=== PATIENT | female | born 2000 | race American Indian/Alaskan Native ===

== ENCOUNTER 2020-12-26 14:58 | Emergency (ER) | payer MEDICAID ==
[2020-12-26 15:28] VITALS: BP 98/54
[2020-12-26] MEDS ORDERED: diphenhydrAMINE 50 MG/ML VIAL IV ONE (15:36)
[2020-12-26] MEDS ORDERED: SODIUM CHLORIDE 0.9% 1000 ML 1,000 ML IV ONE (15:36)
[2020-12-26] MEDS ORDERED: ACETAMINOPHEN 325 MG TAB PO ONE (15:36)
[2020-12-26] MEDS ORDERED: METOCLOPRAMIDE 10 MG/2 ML INJ IV ONE (15:36)
--- NOTE | 2020-12-26 15:58 | Emergency Department Report ---
ED General Adult HPI - General Chief complaint: Nausea/Vomiting/Diarrhea Stated complaint: 8WKS ; NAUSEA; VOMITING Time Seen by Provider: 12/26/20 15:30 Source: patient Mode of arrival: Ambulatory Limitations: No Limitations - History of Present Illness Initial comments: Patient is a 20-year-old female presents emergency room with complaints of nausea and vomiting for several days. She states that the only thing she is able to keep down is aliyah alondra. She states that she is not able to keep down any food. She states that she has associated lower abdominal cramping and lower back pain. She denies any vaginal bleeding, dysuria, fever, abnormal vaginal discharge. She states her last menstrual cycle was 3 months ago. She states 4 weeks ago she took a test [id number] and it was positive. She states that she is currently taking [id number] vitamins. She has not seen [facility] yet. No past medical history. No allergies medications. /P: 1/A: 0 - Related Data Previous Rx's Medication Instructions Recorded Last Taken Type Acetaminophen [Tylenol] 650 mg PO Q8HR PRN #20 capsule 12/26/20 Unknown Rx Metoclopramide [Reglan] 10 mg PO Q8HR PRN #20 tablet 12/26/20 Unknown Rx cephALEXin [Keflex] 500 mg PO BID 7 Days #14 cap 12/26/20 Unknown Rx Allergies Allergy/AdvReac Type Severity Reaction Status Date / Time No Known Allergies Allergy Unverified 12/26/20 15:25 ED Review of Systems ROS: Stated complaint: 8WKS ; NAUSEA; VOMITING Other details as noted in HPI Comment: All other systems reviewed and negative ED Past Medical Hx - Past Medical History Previous Medical History?: No - Surgical History Past Surgical History?: No - Medications Home Medications: Home Medications Medication Instructions Recorded Confirmed Last Taken Type Acetaminophen [Tylenol] 650 mg PO Q8HR PRN #20 capsule 12/26/20 Unknown Rx Metoclopramide [Reglan] 10 mg PO Q8HR PRN #20 tablet 12/26/20 Unknown Rx cephALEXin [Keflex] 500 mg PO BID 7 Days #14 cap 12/26/20 Unknown Rx ED Physical Exam - General Limitations: No Limitations General appearance: alert, in no apparent distress - Head Head exam: Present: atraumatic, normocephalic - Eye Eye exam: Present: normal appearance - ENT ENT exam: Present: mucous membranes dry (mildly) - Respiratory Respiratory exam: Present: normal lung sounds bilaterally. Absent: respiratory distress, wheezes, rales, rhonchi, stridor, chest wall tenderness, accessory muscle use, decreased breath sounds, prolonged expiratory - Cardiovascular Cardiovascular Exam: Present: regular rate, normal rhythm, normal heart sounds. Absent: systolic murmur, diastolic murmur, rubs, gallop - GI/Abdominal GI/Abdominal exam: Present: soft, normal bowel sounds. Absent: distended, tenderness, guarding, rebound, rigid - Neurological Exam Neurological exam: Present: alert, oriented X3 - Psychiatric Psychiatric exam: Present: normal affect, normal mood - Skin Skin exam: Present: warm, dry, intact ED Course Vital Signs 12/26/20 12/26/20 15:27 16:24 Temperature 98.0 F Pulse Rate 115 H Respiratory 20 18 Rate Blood Pressure 98/54 O2 Sat by Pulse 98 Oximetry ED Medical Decision Making - Lab Data Result diagrams: 12/26/20 15:51 12/26/20 15:51 Lab Results 12/26/20 12/26/20 12/26/20 Range/Units 15:51 15:51 15:51 WBC 4.1 L (4.5-11.0) K/mm3 RBC 4.27 (3.65-5.03) M/mm3 Hgb 12.3 (10.1-14.3) gm/dl Hct 37.0 (30.3-42.9) % MCV 87 (79-97) fl MCH 29 (28-32) pg MCHC 33 (30-34) % RDW 14.2 (13.2-15.2) % Plt Count 253 (140-440) K/mm3 Lymph % (Auto) 31.8 (13.4-35.0) % Greene % (Auto) 11.0 H (0.0-7.3) % Eos % (Auto) 1.8 (0.0-4.3) % Baso % (Auto) 0.2 (0.0-1.8) % Lymph # (Auto) 1.3 (1.2-5.4) K/mm3 Greene # (Auto) 0.5 (0.0-0.8) K/mm3 Eos # (Auto) 0.1 (0.0-0.4) K/mm3 Baso # (Auto) 0.0 (0.0-0.1) K/mm3 Seg Neutrophils % 55.2 (40.0-70.0) % Seg Neutrophils # 2.3 (1.8-7.7) K/mm3 Sodium 134 L (137-145) mmol/L Potassium 3.7 (3.6-5.0) mmol/L Chloride 101.7 (98-107) mmol/L Carbon Dioxide 26 (22-30) mmol/L Anion Gap 10 mmol/L BUN 8 (7-17) mg/dL Creatinine 0.6 (0.6-1.2) mg/dL Estimated GFR > 60 ml/min BUN/Creatinine Ratio 13 % Glucose 98 (65-100) mg/dL Calcium 9.1 (8.4-10.2) mg/dL Total Bilirubin 0.40 (0.1-1.2) mg/dL AST 15 (5-40) units/L ALT 8 (7-56) units/L Alkaline Phosphatase 77 (35-129) units/L Total Protein 7.2 (6.3-8.2) g/dL Albumin 4.3 (3.9-5) g/dL Albumin/Globulin Ratio 1.5 % Lipase 13 (13-60) units/L HCG, Quant 14623 H (0-4) mIU/mL Urine Color (Yellow) Urine Turbidity (Clear) Urine pH (5.0-7.0) Ur Specific [place] (1.003-1.030) Urine Protein (Negative) mg/dL Urine Glucose (UA) (Negative) mg/dL Urine Ketones (Negative) mg/dL Urine Blood (Negative) Urine Nitrite (Negative) Urine Bilirubin (Negative) Urine Urobilinogen (<2.0) mg/dL Ur Leukocyte Esterase (Negative) Urine WBC (Auto) (0.0-6.0) /HPF Urine RBC (Auto) (0.0-6.0) /HPF U Epithel Cells (Auto) (0-13.0) /HPF Urine Mucus /HPF 12/26/20 Range/Units 17:44 WBC (4.5-11.0) K/mm3 RBC (3.65-5.03) M/mm3 Hgb (10.1-14.3) gm/dl Hct (30.3-42.9) % MCV (79-97) fl MCH (28-32) pg MCHC (30-34) % RDW (13.2-15.2) % Plt Count (140-440) K/mm3 Lymph % (Auto) (13.4-35.0) % Greene % (Auto) (0.0-7.3) % Eos % (Auto) (0.0-4.3) % Baso % (Auto) (0.0-1.8) % Lymph # (Auto) (1.2-5.4) K/mm3 Greene # (Auto) (0.0-0.8) K/mm3 Eos # (Auto) (0.0-0.4) K/mm3 Baso # (Auto) (0.0-0.1) K/mm3 Seg Neutrophils % (40.0-70.0) % Seg Neutrophils # (1.8-7.7) K/mm3 Sodium (137-145) mmol/L Potassium (3.6-5.0) mmol/L Chloride (98-107) mmol/L Carbon Dioxide (22-30) mmol/L Anion Gap mmol/L BUN (7-17) mg/dL Creatinine (0.6-1.2) mg/dL Estimated GFR ml/min BUN/Creatinine Ratio % Glucose (65-100) mg/dL Calcium (8.4-10.2) mg/dL Total Bilirubin (0.1-1.2) mg/dL AST (5-40) units/L ALT (7-56) units/L Alkaline Phosphatase (35-129) units/L Total Protein (6.3-8.2) g/dL Albumin (3.9-5) g/dL Albumin/Globulin Ratio % Lipase (13-60) units/L HCG, Quant (0-4) mIU/mL Urine Color [place] (Yellow) Urine Turbidity Cloudy (Clear) Urine pH 6.0 (5.0-7.0) Ur Specific [place] 1.036 H (1.003-1.030) Urine Protein 100 mg/dl (Negative) mg/dL Urine Glucose (UA) Neg (Negative) mg/dL Urine Ketones 80 (Negative) mg/dL Urine Blood Neg (Negative) Urine Nitrite Neg (Negative) Urine Bilirubin Neg (Negative) Urine Urobilinogen 2.0 (<2.0) mg/dL Ur Leukocyte Esterase Lg (Negative) Urine WBC (Auto) 61.0 H (0.0-6.0) /HPF Urine RBC (Auto) 17.0 (0.0-6.0) /HPF U Epithel Cells (Auto) 16.0 H (0-13.0) /HPF Urine Mucus 3+ /HPF - Radiology Data Radiology results: report reviewed Ordering Physician: MELONY KO Date of Service: 12/26/20 Procedure(s): US OB <= 14 weeks fetus Accession Number(s): [id number] cc: MELONY KO ULTRASOUND OBSTETRIC, transpelvic Indication: , abd pain, back pain Findings: There is a single, living intrauterine . Deloit-rump length = 0.65 cm = 6 weeks, 3 day(s). heart rate is 117 beats per minute. The ovaries are grossly unremarkable aside from a small 3-4 cm cystlike lesion arising from the right ovary. There is no free fluid. Impression: Single, early living intrauterine with estimated sonographic age of 6 weeks, 3 day(s). Transvaginal exam (which was refused) would yield more accurate measurement results. Mildly complex right ovarian cyst measuring about 3.6 cm in diameter. Signer Name: Joe Mckeon MD Signed: 12/26/2020 6:41 PM Workstation Name: [id number] Transcribed By: BC Dictated By: Joe Mckeon MD Electronically Authenticated By: Joe Mckeon MD Signed Date/Time: 12/26/201840 DD/ 36 TD/TT: - Medical Decision Making Patient is a 20-year-old female presents emergency room with complaints of nausea and vomiting for several days. She states that the only thing she is able to keep down is aliyah alondra. She states that she is not able to keep down any food. She states that she has associated lower abdominal cramping and lower back pain. She denies any vaginal bleeding, dysuria, fever, abnormal vaginal discharge. She states her last menstrual cycle was 3 months ago. She states 4 weeks ago she took a test [id number] and it was positive. She states that she is currently taking [id number] vitamins. She has not seen [facility] yet. No past medical history. No allergies medications. /P: 1/A: 0. inital vitals with tachycardia which improved upon medication administration. pt given medications and she was able to tolerate PO intake without difficulty and had no further episodes of vomiting[place] [address]. UA shows evidence of UTI, could be due to contamination given epithelial cells, urine culture sent, will cover with keflex due to . OB US: Single, early living intrauterine with estimated sonographic age of 6 weeks, 3 day(s). Transvaginal exam (which was refused) would yield more accurate measurement results. Mildly complex right ovarian cyst measuring about 3.6 cm in diameter. discussed all results with pt and answered questions. pt given prescription for keflex, tylenol, and reglan. advised pt Please take medication as prescribed. Please increase your fluid intake. Please take a vitamin [id number]. Follow-up with [facility]. It is very important that you follow-up. Return to emergency room for any new or worsening symptoms. Critical care attestation.: If time is entered above; I have spent that time in minutes in the direct care of this critically ill patient, excluding procedure time. ED Disposition Clinical Impression: Abdominal cramping, Early stage of Nausea & vomiting Qualifiers: Vomiting type: unspecified Vomiting Intractability: non-intractable Qualified Code(s): R11.2 - Nausea with vomiting, unspecified Low back pain Qualifiers: Chronicity: acute Back pain laterality: unspecified Sciatica presence: without sciatica Qualified Code(s): M54.5 - Low back pain Ovarian cyst Qualifiers: Laterality: right Qualified Code(s): N83.201 - Unspecified ovarian cyst, right side Disposition: DC-01 TO HOME OR SELFCARE Is pt being admited?: No Does the pt Need Aspirin: No Condition: Stable Instructions: Urinary Tract Infection, Adult, Morning Sickness, Ovarian Cyst, [id number], First Trimester of Additional Instructions: Please take medication as prescribed. Please increase your fluid intake. Please take a vitamin [id number]. Follow-up with [facility]. It is very important that you follow-up. Return to emergency room for any new or worsening symptoms. Prescriptions: cephALEXin [Keflex] 500 mg PO BID 7 Days #14 cap Metoclopramide [Reglan] 10 mg PO Q8HR PRN #20 tablet PRN Reason: Nausea And Vomiting Acetaminophen [Tylenol] 650 mg PO Q8HR PRN #20 capsule PRN Reason: pain Referrals: [facility] [Provider Group] - 2-3 Days [facility] [Provider Group] - 2-3 Days [facility] [Provider Group] - 2-3 Days [facility] [Primary Care Provider] - 2-3 Days Time of Disposition: 18:56 Print Language: YI
[2020-12-26 16:54] LABS: Basophils % (Auto) 0.2 % (0.0-1.8); Eosinophils # (Auto) 0.1 K/mm3 (0.0-0.4); Eosinophils % (Auto) 1.8 % (0.0-4.3); Hemoglobin 12.3 gm/dl (10.1-14.3); Lymphocytes # (Auto) 1.3 K/mm3 (1.2-5.4); Lymphocytes % (Auto) 31.8 % (13.4-35.0); Mean Corpuscular HGB Conc 33 % (30-34); Mean Corpuscular Volume 87 fl (79-97); Monocytes # (Auto) 0.5 K/mm3 (0.0-0.8); Platelet Count 253 K/mm3 (140-440); Red Blood Count 4.27 M/mm3 (3.65-5.03); Red Cell Distribution Width 14.2 % (13.2-15.2)
[2020-12-26 16:59] LABS: Alanine Aminotransferase 8 units/L (7-56); Albumin 4.3 g/dL (3.9-5); Blood Urea Nitrogen 8 mg/dL (7-17); Calcium 9.1 mg/dL (8.4-10.2); Hemolysis Index 4
[2020-12-26 17:00] LABS: BUN/Creatinine Ratio 13
[2020-12-26 18:03] LABS: Bilirubin,Urine NEG (Negative); Blood,Urine NEG (Negative); Color,Urine Amber (Yellow); Mucus,Urine 3+ /HPF
--- NOTE | 2020-12-26 18:45 | Ultrasound Report ---
ULTRASOUND OBSTETRIC, transpelvic Indication: , abd pain, back pain Findings: There is a single, living intrauterine . [place]-rump length = 0.65 cm = 6 weeks, 3 day(s). heart rate is 117 beats per minute. The ovaries are grossly unremarkable aside from a small 3-4 cm cystlike lesion arising from the right ovary. There is no free fluid. Impression: Single, early living intrauterine with estimated sonographic age of 6 weeks, 3 day(s). Mix svaginal exam (which was refused) would yield more accurate measurement results. Mildly complex right ovarian cyst measuring about 3.6 cm in diameter. Signer Name: Joe Mckeon MD Signed: 12/26/2020 6:41 PM Workstation Name: [id number]
== END 2020-12-26 18:20 | disposition home or self-care (01) ==
LOC: ED 14:58
DX: O26.891 Other specified pregnancy related conditions, first trimester (principal); O21.8 Other vomiting complicating pregnancy; N83.201 Unspecified ovarian cyst, right side; M54.5 Low back pain; R10.9 Unspecified abdominal pain; Z3A.01 Less than 8 weeks gestation of pregnancy; Z79.899 Other long term (current) drug therapy
CPT/HCPCS: 36415; 76801; 80053; 81001; 83690; 84702; 85025; 87086; 96361; 96374; 96375; 99284; J1200; J2765; J7030

== ENCOUNTER 2021-07-21 20:36 | Outpatient (CLI) | payer MEDICAID ==
[2021-07-21 21:12] VITALS: BP 129/63
[2021-07-21] MEDS ORDERED: ACETAMINOPHEN 500 MG TAB PO ONE (22:43)
== END 2021-07-21 23:07 | disposition home or self-care (01) ==
LOC: TRG 20:36 → APU 20:37 → TRG 23:07
PROVIDERS: ATTEND Obstetrics & Gynecology
DX: O47.03 False labor before 37 completed weeks of gestation, third trimester (principal); Z3A.36 36 weeks gestation of pregnancy
CPT/HCPCS: 59025; Q0177

== ENCOUNTER 2021-07-22 19:04 | Outpatient (CLI) | payer MEDICAID ==
[2021-07-22 19:53] VITALS: BP 105/60
[2021-07-22 20:34] LABS: Bilirubin,Urine NEG (Negative); Blood,Urine NEG (Negative); Color,Urine Yellow (Yellow); Protein,Urine <15 mg/dL mg/dL (Negative); Urobilinogen,Urine < 2.0 mg/dL (<2.0)
[2021-07-22 20:38] LABS: Amphetamine Screen,Urine Negative; Benzodiazepines Screen,Urine Negative; Cannabinoid Screen,Urine Negative; Cocaine Screen,Urine Negative; Methadone Screen,Urine Negative; Opiate Screen,Urine Negative
[2021-07-22] MEDS ORDERED: FLUCONAZOLE 200 MG TAB PO ONE (22:33)
== END 2021-07-22 22:00 | disposition home or self-care (01) ==
LOC: TRG 19:04 → APU 19:32 → TRG 22:00
PROVIDERS: ATTEND Obstetrics & Gynecology
DX: Z34.93 Encounter for supervision of normal pregnancy, unspecified, third trimester (principal); Z3A.37 37 weeks gestation of pregnancy
CPT/HCPCS: 36415; 59025; 80307; 81001; 84112